=== PATIENT | female | born 1990 ===

== ENCOUNTER 2024-11-24 19:22 | Emergency (ER) | payer OTHER ==
--- NOTE | 2024-11-24 19:57 | RAD REPORT ---
EXAM: Chest Single View HISTORY: 34 years Female CHEST PAIN COMPARISON: 06/24/2016 FINDINGS: LUNGS/PLEURA: The lungs are clear. No pleural effusions or pneumothorax. No pulmonary edema. CARDIAC/MEDIASTINUM: The cardiac silhouette is within normal limits. UPPER ABDOMEN: No significant abnormality. BONES: No acute abnormality. LINES/TUBES/OTHER: N/A IMPRESSION: No evidence of acute cardiopulmonary disease. No significant change from prior.
--- NOTE | 2024-11-24 20:07 | RAD REPORT ---
EXAMINATION: Ct Stroke Brain Wo Cont CLINICAL INDICATION: Female, 34 years old.STROKE ALERT TECHNIQUE: Axial CT images from the skull base to the vertex without intravenous contrast. Coronal an d sagittal reformatted images were created from the data set. One or more of the following dose reduction techniques were used: Automated exposure control, adjustment of the mA and/or kV according to patient size, and/or iterative reconstruction. Unless otherwise specified, incidental findings do not require dedicated imaging follow-up. [id number]. COMPARISON: 11/16/14 FINDINGS: INTRACRANIAL: No acute intracranial hemorrhage. No hydrocephalus. No mass effect or midline shift. No significant white matter disease. VASCULATURE: No visualized abnormalities in the arteries or dural venous sinuses. SCALP/SKULL: No calvarial fracture identified. No acute soft tissue abnormality. SINUSES: The visualized paranasal sinuses are mostly clear. No significant mastoid fluid. IMPRESSION: No acute intracranial abnormality. The findings were communicated to Dr. Mason on 11/24/2024 8:04 PM.
--- NOTE | 2024-11-24 20:08 | RAD REPORT ---
EXAMINATION: Neck Angio CLINICAL INDICATION: Female, 34 years old. NUMBNESS TECHNIQUE: Axial CT images were obtained from the aortic arch to the skull base after intravenous con trast utilizing angiographic protocol with 3D post-processing (maximum intensity projection images, volume rendered images and/or shaded surface rendered images). One or more of the following dose redu ction techniques were used: Automated exposure control, adjustment of the mA and/or kV according to patient size, and/or iterative reconstruction. Unless otherwise specified, incidental findings do not require dedicated imaging follow-up. [id number]. NASCET criteria used. Mild 0-49% stenosis Moderate 50-69% stenosis Severe 70-99% stenosis COMPARISON: No prior exam. FINDINGS: AORTA: Normal RIGHT: - CCA: Patent - ICA: Patent - ECA: Patent LEFT: - CCA: Patent - ICA: Patent - ECA: Patent VERTEBRAL: Patent SOFT TISSUE: No significant neck soft tissue abnormalities. The visualized lung apices are clear. 3D images confirm these findings. IMPRESSION: No arterial dissection or stenosis identified within the neck.
--- NOTE | 2024-11-24 20:10 | RAD REPORT ---
EXAMINATION: Head angio CLINICAL INDICATION: Female, 34 years old. STROKE ALERT TECHNIQUE: Axial CT images were obtained through the head after intravenous contrast utilizing angiog raphic protocol with 3D post-processing (maximum intensity projection images, volume rendered images and/or shaded surface rendered images). One or more of the following dose reduction technique s were used: Automated exposure control, adjustment of the mA and/or kV according to patient size, and/or iterative reconstruction. Unless otherwise specified, incidental findings do not require dedic ated imaging follow-up. COMPARISON: No prior exam. FINDINGS: RIGHT: ICA: Patent PAOLO: Patent MCA: Patent PUBLICATION EDITOR: Patent LEFT: ICA: Patent PAOLO: Patent MCA: Patent PUBLICATION EDITOR: Patent Vertebrobasilar: The vertebral arteries are patent. The basilar artery is normal in appearance. 3D images confirm these findings. IMPRESSION: No occlusion, aneurysm, or hemodynamically significant stenosis identified.
[2024-11-24] MEDS ORDERED: NA CHLORIDE 0.9% 1,000 ML ONE (20:27)
[2024-11-24 20:38] LABS: Absolute Basophils 0.1 K/uL (0-0.5); Absolute Monocytes 0.3 K/uL (0.1-1.3); Absolute Neutrophil 6.6 K/uL (1.8-8.0); Basophils % 0.7 % (0-1.3); Eosinophils % 0.3 % (0-4.4); Hematocrit 40.6 % (36.0-45.0); Hemoglobin 13.9 g/dL (12.0-15.0); Lymphocytes % 36.5 % (15.3-44.8); MCH 31.6 pg (27.0-35.0); MCHC 34.3 g/dL (32.0-36.0); MCV 92.1 fL (80-100); MPV 8.9 fL (7.6-11.3); Monocytes % 2.7 % (3.3-12.3); Neutrophils % 59.8 % (41.7-73.7); Nucleated Red Blood Cells % 0.1 % (0-0); Platelets 431 thou/uL (152-406); Red Cell Distribution Width 17.2 % (12.1-15.2)
[2024-11-24 20:41] LABS: PTT, Activated Partial Thromb 30.5 SECONDS (27.2-37.4); Protime INR 0.96
[2024-11-24] MEDS ORDERED: THIAMINE 200 MG/2 ML INJ ONE (20:51)
[2024-11-24] MEDS ORDERED: FOLIC ACID 5 MG/ML VIAL ONE (20:52)
[2024-11-24] MEDS ORDERED: MULTIVITAMINS 10 ML VIAL (INJ) IV ONE (20:52)
[2024-11-24 21:01] LABS: Anion Gap 10.2 mEq/L (5.0-15.0); Potassium 3.2 mEq/L (3.5-5.1); Troponin High Sensitivity 4.5 pg/mL (<58.9)
[2024-11-24 22:22] LABS: Specific Gravity > 1.030 (1.005-1.030)
[2024-11-24 22:27] LABS: Barbiturates NEGATIVE (NEGATIVE); Benzodiazepines NEGATIVE (NEGATIVE); Cocaine NEGATIVE (NEGATIVE); METHAMPHETAM NEGATIVE (NEGATIVE); Methadone NEGATIVE (NEGATIVE); Opiates NEGATIVE (NEGATIVE); Phencyclidine NEGATIVE (NEGATIVE); THC Cannibis NEGATIVE (NEGATIVE)
--- NOTE | 2024-11-24 22:38 | EDPHYS ---
Physician Documentation [facility] Name: Myra Orlando Age: 34 yrs Sex: Female : 1990 Arrival Date: 11/24/2024 Time: 19:22 Bed 4 Private MD: ED Physician Bala Veras HPI: 11/24 19:49 This 34 yrs old Female presents to ER via EMS with complaints of Chest Pain, gb1 Shortness Of Breath. 19:49 34-year-old female here at 6:00PM stated she had chest pain shortness of breath gb1 and then she could not move her left lower extremity and her left upper extremity felt weak like pins needles. She has a history of a TIA in the past but this is a new deficit. Patient states that she did drink heavily alcohol yesterday and she is a heavy tobacco smoker. She also takes lisinopril for hypertension. She has no drug allergies and is otherwise without any other problems to report. She has a headache 10 out of 10.. 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 - Infectious Disease History:: Denies. - Social history:: Smoking status: Patient reports the use of cigarette tobacco products, smokes one pack cigarettes per day. Patient uses alcohol, occasionally. ROS: 11/25 02:14 Constitutional: Negative for fever, chills, and weight loss, positive for chest pain, sp4 positive shortness of breath, positive for left arm numbness tingling, positive left leg numbness tingling All other systems are negative, Exam: 11/24 19:49 Constitutional: This is a well developed, well nourished patient who is awake, alert, gb1 and in no acute distress. Head/Face: Normocephalic, atraumatic. Eyes: Pupils equal round and reactive to light, extra-ocular motions intact. Lids and lashes normal. Conjunctiva and sclera are non-icteric and not injected. Cornea within normal limits. Periorbital areas with no swelling, redness, or edema. ENT: Nares patent. No nasal discharge, no septal abnormalities noted. Tympanic membranes are normal and external auditory canals are clear. Oropharynx with no redness, swelling, or masses, exudates, or evidence of obstruction, uvula midline. Mucous membranes moist. Neck: Trachea midline, no thyromegaly or masses palpated, and no cervical lymphadenopathy. Supple, full range of motion without nuchal rigidity, or vertebral point tenderness. No Meningismus. Chest/axilla: Normal chest wall appearance and motion. Nontender with no deformity. No lesions are appreciated. Cardiovascular: Regular rate and rhythm with a normal S1 and S2. No gallops, murmurs, or rubs. Normal PMI, no JVD. No pulse deficits. Respiratory: Lungs have equal breath sounds bilaterally, clear to auscultation and percussion. No rales, rhonchi or wheezes noted. No increased work of breathing, no retractions or nasal flaring. Abdomen/GI: Soft, non-tender, with normal bowel sounds. No distension or tympany. No guarding or rebound. No evidence of tenderness throughout. Back: No spinal tenderness. No costovertebral tenderness. Full range of motion. Skin: Warm, dry with normal turgor. Normal color with no rashes, no lesions, and no evidence of cellulitis. MS/ Extremity: Pulses equal, no cyanosis. Left lower extremity she is unable to lift against gravity and left upper extremity has paresthesias and 4-5 strength. Right sided extremities are within normal limits per sensory and motor guidelines. Neuro: Awake and alert, GCS 15, oriented to person, place, time, and situation. Cranial nerves II-XII grossly intact. Motor strength 5/5 in all extremities on the right and on the left upper extremity is 4 out of 5 in the left lower extremity is 1 out of 5. Sensory grossly intact. Unable to test gait patient is unable to use the left lower extremity.. 22:00 ECG was reviewed by the Attending Physician. EKG at 2016 normal sinus rhythm, rate 100. sp4 Vital Signs: 19:20 BP 126 / 92; Pulse 119; Resp 18; Temp 98.4; Pulse Ox 99% on R/A; Weight 60 kg; Height 5 rg5 ft. 6 in. ; Pain 7/10; 20:13 BP 141 / 107; Pulse 109; Resp 18; Pulse Ox 100% ; Pain 7/10; rg5 21:00 BP 130 / 96; Pulse 97; Resp 18; Pulse Ox 99% ; rg5 22:00 BP 133 / 94; Pulse 93; Resp 18; Temp 98; Pulse Ox 100% ; rg5 19:20 Body Mass Index 21.35 (60.00 kg, 167.64 cm) rg5 19:20 Pain Scale: Adult rg5 20:13 Pain Scale: Adult rg5 NIH Stroke Scale Scores: 12:50 NIHSS Score: 4 rg5 22:00 NIHSS Score: 0 rg5 22:00 NIHSS Score: 0 sp4 [place] Coma Score: 22:00 Eye Response: spontaneous(4). Motor Response: obeys commands(6). Verbal Response: sp4 oriented(5). Total: 15. Procedures: 19:54 Performed NIHSS: Limb ataxia 2, Sensory 1, Motor L Arm: 1, Motor L Leg 3: Total 7. gb1 MDM: 19:49 Medical Screening Exam initiated gb1 19:49 Data reviewed: vital signs, nurses notes. 1 11/25 02:11 Differential diagnosis: acute myocardial infarction, acute pericarditis, anxiety, sp4 coronary artery disease chest wall pain, congestive heart failure Acute CVA. ED course: Patient has sobered up and ambulated without difficulty. No sign of acute CVA. CT angio does not suggest CVA. Patient stable for discharge home. Advised to discontinue alcohol abuse.. 02:13 ED course: EXAMINATION: Ct Stroke Brain Wo Cont CLINICAL INDICATION: Female, 34 years sp4 old.STROKE ALERT TECHNIQUE: Axial CT images from the skull base to the vertex without intravenous contrast. Coronal and sagittal reformatted images were created from the data set. One or more of the following dose reduction techniques were used: Automated exposure control, adjustment of the mA and/or kV according to patient size, and/or iterative reconstruction. Unless otherwise specified, incidental findings do not require dedicated imaging follow-up. [id number]. COMPARISON: 11/16/14 FINDINGS: INTRACRANIAL: No acute intracranial hemorrhage. No hydrocephalus. No mass effect or midline shift. No significant white matter disease. VASCULATURE: No visualized abnormalities in the arteries or dural venous sinuses. SCALP/SKULL: No calvarial fracture identified. No acute soft tissue abnormality. SINUSES: The visualized paranasal sinuses are mostly clear. No significant mastoid fluid. IMPRESSION: No acute intracranial abnormality. The findings were communicated to Dr. Marlon on 11/24/2024 8:04 PM. Reported By: Nahid Loera . ED course: EXAM: Chest Single View HISTORY: 34 years Female CHEST PAIN COMPARISON: 06/24/2016 FINDINGS: LUNGS/PLEURA: The lungs are clear. No pleural effusions or pneumothorax. No pulmonary edema. CARDIAC/MEDIASTINUM: The cardiac silhouette is within normal limits. UPPER ABDOMEN: No significant abnormality. BONES: No acute abnormality. LINES/TUBES/OTHER: N/A IMPRESSION: No evidence of acute cardiopulmonary disease. No significant change from prior. . ED course: EXAMINATION: Head angio CLINICAL INDICATION: Female, 34 years old. STROKE ALERT TECHNIQUE: Axial CT images were obtained through the head after intravenous contrast utilizing angiographic protocol with 3D post-processing (maximum intensity projection images, volume rendered images and/or shaded surface rendered images). One or more of the following dose reduction techniques were used: Automated exposure control, adjustment of the mA and/or kV according to patient size, and/or iterative reconstruction. Unless otherwise specified, incidental findings do not require dedicated imaging follow-up. COMPARISON: No prior exam. FINDINGS: RIGHT: ICA: Patent PAOLO: Patent MCA: Patent PLATFORM MATERIAL HANDLER MANAGER: Patent LEFT: ICA: Patent PAOLO: Patent MCA: Patent PLATFORM MATERIAL HANDLER MANAGER: Patent Vertebrobasilar: The vertebral arteries are patent. The basilar artery is normal in appearance. 3D images confirm these findings. IMPRESSION: No occlusion, aneurysm, or hemodynamically significant stenosis identified. . ED course: CT Neck - 3D images confirm these findings. IMPRESSION: No arterial dissection or stenosis identified within the neck. . 02:15 HEART Score: History: Slightly Suspicious (0), ECG: Normal (0), Age: < or = 45 years sp4 (0), Risk Factors: No Risk Factors Known (0), Troponin: < or = 1 x Normal Limit (0), Total Score = 0. 11/24 19:33 Order name: Basic Metabolic Panel; Complete Time: 22:28 sb4 11/24 19:33 Order name: CBC with Diff; Complete Time: 20:46 sb4 11/24 19:33 Order name: Troponin HS; Complete Time: 22:28 sb4 11/24 19:33 Order name: Test, Urine; Complete Time: 22:28 sb4 11/24 19:48 Order name: Magnesium; Complete Time: 22:28 gb1 11/24 19:48 Order name: Protime (+inr); Complete Time: 20:46 gb1 11/24 19:48 Order name: Ptt, Activated; Complete Time: 20:46 gb1 11/24 19:49 Order name: Ethanol; Complete Time: 22:28 gb1 11/24 20:35 Order name: Urine Drug Screen; Complete Time: 22:28 sp4 11/24 19:33 Order name: XRAY Chest (1 view); Complete Time: 20:01 sb4 11/24 19:48 Order name: CT Neck Angio; Complete Time: 20:19 gb1 11/24 19:55 Order name: Ct Stroke Brain Wo Cont; Complete Time: 20:19 EDMS 11/24 19:57 Order name: Head angio; Complete Time: 20:19 EDMS 11/24 19:33 Order name: Cardiac monitoring; Complete Time: 20:23 sb4 11/24 19:33 Order name: EKG - Nurse/Tech; Complete Time: 20:23 sb4 11/24 19:33 Order name: IV Saline Lock; Complete Time: 20:23 sb4 11/24 19:33 Order name: Labs collected and sent; Complete Time: 20:23 sb4 11/24 19:33 Order name: O2 Per Protocol; Complete Time: 20:23 sb4 11/24 19:33 Order name: O2 Sat Monitoring; Complete Time: 20:23 sb4 11/24 19:48 Order name: NPO; Complete Time: 20:23 gb1 EC/19 20:16 Rate is 100 beats/min. Rhythm is regular, Normal Sinus Rhythm. QRS [place] is Normal. [place] sp4 interval is normal. QRS interval is normal. QT interval is normal. No Q waves. T waves are Normal. No ST changes noted. Clinical impression: No evidence of ischemia. Interpreted by me. Reviewed by me. Administered Medications: 20:29 Drug: NS 0.9% IV 1000 ml IV at 1 bolus Per protocol; to be given as a bolus over 60 rg5 minutes Route: IV; Rate: 1 bolus; Site: right forearm; 22:54 Follow up: IV Status: Completed infusion; IV Intake: 1000ml rg5 21:05 Drug: Banana Bag - (Multivitamin IV 1 amp, NS 0.9% IV 1000 ml, Thiamine IV 100 mg, rg5 foLIC Acid IVPB 1 mg) IV at calculated rate once Route: IV; Rate: calculated rate; Site: right forearm; 21:56 Follow up: IV Status: Completed infusion; IV Intake: 1000ml rg5 Disposition: 19:49 Critical Care:. gb1 Disposition Summary: 11/24/24 22:38 Discharge Ordered Notes: Location: Home sp4 Problem: new sp4 Symptoms: have improved sp4 Condition: Stable sp4 Diagnosis - Alcohol abuse with intoxication sp4 - Acute alcohol intoxication, acute numbness left lower extremity, acute paresthesias sp4 left upper extremity Followup: sp4 - With: Private Physician - When: 7 - 10 days - Reason: Recheck today's complaints Discharge Instructions: - Discharge Summary Sheet sp4 - Alcohol Intoxication sp4 Forms: - Patient Portal Instructions sp4 Critical care time excluding procedures: 19:49 Critical care time: Bedside Care: 40 minutes, Consultation: 10 minutes, Family gb1 Intervention: 35 minutes. Total time: 85 minutes NIH Stroke Scale - NIH Stroke Score Date: 11/24/2024 Time: 12:50 Total Score = 4 10. Dysarthria (speech clarity - read or repeat words) - 0(Normal) 11. Extinction and Inattention (visual/tactile/auditory/spatial/personal) - 0(No abnormality) 1a. Level of Consciousness (LOC) - 0(Alert) 1b. Level of Consciousness (LOC) (Month \T\ Age) - 0(Both) 1c. LOC Commands (Open \T\ Closes Eyes/Cloth Measurer Machine) - 0(Both) 2. Best Gaze (Lateral Gaze Paresis) - 0(Normal) 3. Visual Field Loss - 0(No visual loss) 4. Facial Palsy - 0(Normal) 5a. Left Arm: Motor (10-second hold) - 1(Drift) 5b. Right Arm: Motor (10-second hold) - 0(No drift) 6a. Left Leg: Motor (5-second hold - always test supine) - 2(Drift, some effort against gravity) 6b. Right Leg: Motor (5-second hold - always test supine) - (No drift) 7. Limb Ataxia (finger/nose \T\ heel/alva - test with eyes open) - 0(Absent) 8. Sensory Loss (pinprick arms/legs/face) - 1(Mild to moderate loss) 9. Best Language: Aphasia (description/naming/reading) - 0(No aphasia) Initials: [facility] NIH Stroke Scale - NIH Stroke Score Date: 11/24/2024 Time: 22:00 Total Score = 0 10. Dysarthria (speech clarity - read or repeat words) - 0(Normal) 11. Extinction and Inattention (visual/tactile/auditory/spatial/personal) - 0(No abnormality) 1a. Level of Consciousness (LOC) - 0(Alert) 1b. Level of Consciousness (LOC) (Month \T\ Age) - 0(Both) 1c. LOC Commands (Open \T\ Closes Eyes/Cloth Measurer Machine) - 0(Both) 2. Best Gaze (Lateral Gaze Paresis) - 0(Normal) 3. Visual Field Loss - 0(No visual loss) 4. Facial Palsy - 0(Normal) 5a. Left Arm: Motor (10-second hold) - 0(No drift) 5b. Right Arm: Motor (10-second hold) - 0(No drift) 6a. Left Leg: Motor (5-second hold - always test supine) - 0(No drift) 6b. Right Leg: Motor (5-second hold - always test supine) - 0(No drift) 7. Limb Ataxia (finger/nose \T\ heel/alva - test with eyes open) - 0(Absent) 8. Sensory Loss (pinprick arms/legs/face) - 0(Normal) 9. Best Language: Aphasia (description/naming/reading) - 0(No aphasia) Initials: [facility] NIH Stroke Scale - NIH Stroke Score Date: 11/24/2024 Time: 22:00 Total Score = 0 10. Dysarthria (speech clarity - read or repeat words) - 0(Normal) 11. Extinction and Inattention (visual/tactile/auditory/spatial/personal) - 0(No abnormality) 1a. Level of Consciousness (LOC) - 0(Alert) 1b. Level of Consciousness (LOC) (Month \T\ Age) - 0(Both) 1c. LOC Commands (Open \T\ Closes Eyes/Cloth Measurer Machine) - 0(Both) 2. Best Gaze (Lateral Gaze Paresis) - 0(Normal) 3. Visual Field Loss - 0(No visual loss) 4. Facial Palsy - 0(Normal) 5a. Left Arm: Motor (10-second hold) - 0(No drift) 5b. Right Arm: Motor (10-second hold) - 0(No drift) 6a. Left Leg: Motor (5-second hold - always test supine) - 0(No drift) 6b. Right Leg: Motor (5-second hold - always test supine) - 0(No drift) 7. Limb Ataxia (finger/nose \T\ heel/alva - test with eyes open) - 0(Absent) 8. Sensory Loss (pinprick arms/legs/face) - 0(Normal) 9. Best Language: Aphasia (description/naming/reading) - 0(No aphasia) Initials: sp4 Signatures: Dispatcher [employer] EDMS Feli Agee, PALelaC PAJune sb4 Bala Veras MD MD sp4 Lisha Mason MD MD gb1 Felipe Campos, RN RN rg5 Corrections: (The following items were deleted from the chart) 19:33 19:33 BASIC METABOLIC PANEL+C.LAB.BRZ ordered. EDMS EDMS 19:33 19:33 CBC+H.LAB.BRZ ordered. EDMS EDMS 19:33 19:33 Troponin High Sensitivity+C.LAB.BRZ ordered. EDMS EDMS 19:33 19:33 Test, Urine+UC.LAB.BRZ ordered. EDAZ EDMS 19:33 19:33 Chest Single View+RAD.RAD.BRZ ordered. EDAZ EDMS 19:48 19:48 MAGNESIUM+C.LAB.BRZ ordered. EDMS EDMS 19:48 19:48 PROTIME (+INR)+COAG.LAB.BRZ ordered. EDMS EDMS 19:48 19:48 PTT, ACTIVATED+COAG.LAB.BRZ ordered. EDMS EDMS 19:48 19:48 Head Brain Wo Cont+CT.RAD.BRZ ordered. EDMS EDMS 19:48 19:48 Chest Single View+RAD.RAD.BRZ ordered. EDMS EDMS 19:48 19:48 Head Brain W Cont+CT.RAD.BRZ ordered. EDMS EDMS 19:48 19:48 Neck Angio+CT.RAD.BRZ ordered. EDMS EDMS 19:58 19:49 34-year-old female here at 6:00 stated she had chest pain gb1 shortness of breath and then she could not move her left lower extremity and her left upper extremity felt weak like pins needles. She has a history of a TIA in the past but this is a new deficit. Patient states that she did drink heavily alcohol yesterday and she is a heavy tobacco smoker. She also takes lisinopril for hypertension. She has no drug allergies and is otherwise without any other problems to report. She has a headache 10 out of 10.. gb1 22:11 19:49 URINE DRUG SCREEN+UC.LAB.BRZ ordered. EDMS EDMS 22:12 19:49 Test, Urine+UC.LAB.BRZ ordered. EDMS EDMS
--- NOTE | 2024-11-24 22:38 | ER ---
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 19:23 Coronavirus screen: Client denies travel out of the [place] in the last 14 days. Ebola rg5 Screen: Patient negative for fever greater than or equal to 101.5 degrees Fahrenheit, and additional compatible Ebola Virus Disease symptoms Patient denies exposure to infectious person. Patient denies travel to an Ebola-affected area in the 21 days before illness onset. Initial Sepsis Screen: Does the patient meet any 2 criteria? No. Patient's initial sepsis screen is negative. Does the patient have a suspected source of infection? No. Patient's initial sepsis screen is negative. Risk Assessment: Do you want to hurt yourself or someone else? Patient reports no desire to harm self or others. Onset of symptoms was November 24, 2024. Care prior to arrival: Medication(s) given: ASA, 81 mg, x 4. 19:23 Method Of Arrival: EMS: [facility] rg5 19:23 Acuity: SHRADDHA 3 rg5 Triage Assessment: 19:25 General: Appears in no apparent distress. Behavior is calm, cooperative, appropriate rg5 for age, Smells of alcohol. 19:25 Pain: Complains of pain in chest. EENT: No signs and/or symptoms were reported rg5 regarding the EENT system. Neuro: Level of Consciousness is awake, alert, obeys commands, Oriented to person, place, time, situation, Reports numbness weakness. Cardiovascular: Reports chest pain, shortness of breath, Capillary refill < 3 seconds Patient's skin is warm and dry. Rhythm is sinus tachycardia. Respiratory: Airway is patent Trachea midline Respiratory effort is even, unlabored, Respiratory pattern is regular, symmetrical. GI: No signs and/or symptoms were reported involving the gastrointestinal system. Abdomen is round non-distended. : No signs and/or symptoms were reported regarding the genitourinary system. Derm: Skin is intact, Skin is dry, Skin is normal. Musculoskeletal: Circulation, motion, and sensation intact. Range of motion: intact in all extremities. 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 - Infectious Disease History:: Denies. - Social history:: Smoking status: Patient reports the use of cigarette tobacco products, smokes one pack cigarettes per day. Patient uses alcohol, occasionally. Screenin:25 [facility] ED Fall Risk Assessment (Adult) History of falling in the last 3 months, rg5 including since admission No falls in past 3 months (0 pts) Intoxicated or Sedated Yes (3 pts) Impaired Gait Yes (1 pt) Mobility Assist Device Used No (0 pt) Altered Elimination No (0 pt) Score/Fall Risk Level 3 or more points = High Risk Hourly rounding (assess needs \T\ fall precautionary measures) done. Abuse screen: Denies threats or abuse. Nutritional screening: No deficits noted. 19:25 Tuberculosis screening: No symptoms or risk factors identified. rg5 22:55 [facility] ED Fall Risk Assessment (Adult) Confusion or Disorientation. rg5 Assessment: 19:25 Pain: Pain radiates to left arm Quality of pain is described as dull, numb, Pain began rg5 1 hour ago. 20:00 Reassessment: Patient and/or family updated on plan of care and expected duration. Pain rg5 level reassessed. Patient is alert, oriented x 3, equal unlabored respirations, skin warm/dry/pink. Patient states symptoms have improved. 21:00 Reassessment: Patient and/or family updated on plan of care and expected duration. Pain rg5 level reassessed. Patient is alert, oriented x 3, equal unlabored respirations, skin warm/dry/pink. Patient states symptoms have improved. 22:00 Reassessment: Patient and/or family updated on plan of care and expected duration. Pain rg5 level reassessed. Patient is alert, oriented x 3, equal unlabored respirations, skin warm/dry/pink. Patient states feeling better. Patient states symptoms have improved. Vital Signs: 19:20 BP 126 / 92; Pulse 119; Resp 18; Temp 98.4; Pulse Ox 99% on R/A; Weight 60 kg; Height 5 rg5 ft. 6 in. ; Pain 7/10; 20:13 BP 141 / 107; Pulse 109; Resp 18; Pulse Ox 100% ; Pain 7/10; rg5 21:00 BP 130 / 96; Pulse 97; Resp 18; Pulse Ox 99% ; rg5 22:00 BP 133 / 94; Pulse 93; Resp 18; Temp 98; Pulse Ox 100% ; rg5 19:20 Body Mass Index 21.35 (60.00 kg, 167.64 cm) rg5 19:20 Pain Scale: Adult rg5 20:13 Pain Scale: Adult rg5 Matt Coma Score: 22:00 Eye Response: spontaneous(4). Motor Response: obeys commands(6). Verbal Response: sp4 oriented(5). Total: 15. NIH Stroke Scale Scores: 12:50 NIHSS Score: 4 rg5 22:00 NIHSS Score: 0 rg5 22:00 NIHSS Score: 0 sp4 ED Course: 19:23 Patient arrived in ED. rg5 19:24 Felpie Campos, RN is Primary Nurse. rg5 19:25 No provider procedures requiring assistance completed. Patient maintains SpO2 rg5 saturation greater than 95% on room air. 19:25 Patient has correct armband on for positive identification. Bed in low position. Call rg5 light in reach. Side rails up X 1. Client placed on continuous cardiac and pulse oximetry monitoring. NIBP monitoring applied. environmental monitoring technician on. Pulse ox on. NIBP on. 19:25 Arm band placed on right wrist. rg5 19:25 EKG completed in triage. Results shown to MD. rg5 19:27 Triage completed. rg5 19:46 Lisha Mason MD is Attending Physician. gb1 19:46 XRAY Chest (1 view) In Process Unspecified. EDMS 19:58 Ct Stroke Brain Wo Cont In Process Unspecified. EDMS 20:00 Attending Physician role handed off by Lisha Mason MD sp4 20:00 Bala Veras MD is Attending Physician. sp4 20:04 CT Neck Angio In Process Unspecified. EDMS 20:05 Head angio In Process Unspecified. EDMS 22:00 Provided Education on: post er care. rg5 22:55 IV discontinued, bleeding controlled, No redness/swelling at site. Pressure dressing rg5 applied. Administered Medications: 20:29 Drug: NS 0.9% IV 1000 ml IV at 1 bolus Per protocol; to be given as a bolus over 60 rg5 minutes Route: IV; Rate: 1 bolus; Site: right forearm; 22:54 Follow up: IV Status: Completed infusion; IV Intake: 1000ml rg5 21:05 Drug: Banana Bag - (Multivitamin IV 1 amp, NS 0.9% IV 1000 ml, Thiamine IV 100 mg, rg5 foLIC Acid IVPB 1 mg) IV at calculated rate once Route: IV; Rate: calculated rate; Site: right forearm; 21:56 Follow up: IV Status: Completed infusion; IV Intake: 1000ml rg5 Medication: 22:15 VIS not applicable for this client. rg5 Intake: 21:56 IV: 1000ml; Total: 1000ml. rg5 22:54 IV: 1000ml; Total: 2000ml. rg5 Outcome: 22:38 Discharge ordered by . sp4 22:55 Discharged to home ambulatory, rg5 22:55 Condition: stable 22:55 Discharge instructions given to patient, 22:57 Patient left the ED. rg5 NIH Stroke Scale - NIH Stroke Score Date: 11/24/2024 Time: 12:50 Total Score = 4 10. Dysarthria (speech clarity - read or repeat words) - 0(Normal) 11. Extinction and Inattention (visual/tactile/auditory/spatial/personal) - 0(No abnormality) 1a. Level of Consciousness (LOC) - 0(Alert) 1b. Level of Consciousness (LOC) (Month \T\ Age) - 0(Both) 1c. LOC Commands (Open \T\ Closes Eyes/Kitchen Food Assembler) - 0(Both) 2. Best Gaze (Lateral Gaze Paresis) - 0(Normal) 3. Visual Field Loss - 0(No visual loss) 4. Facial Palsy - 0(Normal) 5a. Left Arm: Motor (10-second hold) - 1(Drift) 5b. Right Arm: Motor (10-second hold) - 0(No drift) 6a. Left Leg: Motor (5-second hold - always test supine) - 2(Drift, some effort against gravity) 6b. Right Leg: Motor (5-second hold - always test supine) - (No drift) 7. Limb Ataxia (finger/nose \T\ heel/alva - test with eyes open) - 0(Absent) 8. Sensory Loss (pinprick arms/legs/face) - 1(Mild to moderate loss) 9. Best Language: Aphasia (description/naming/reading) - 0(No aphasia) Initials: [facility] NIH Stroke Scale - NIH Stroke Score Date: 11/24/2024 Time: 22:00 Total Score = 0 10. Dysarthria (speech clarity - read or repeat words) - 0(Normal) 11. Extinction and Inattention (visual/tactile/auditory/spatial/personal) - 0(No abnormality) 1a. Level of Consciousness (LOC) - 0(Alert) 1b. Level of Consciousness (LOC) (Month \T\ Age) - 0(Both) 1c. LOC Commands (Open \T\ Closes Eyes/Kitchen Food Assembler) - 0(Both) 2. Best Gaze (Lateral Gaze Paresis) - 0(Normal) 3. Visual Field Loss - 0(No visual loss) 4. Facial Palsy - 0(Normal) 5a. Left Arm: Motor (10-second hold) - 0(No drift) 5b. Right Arm: Motor (10-second hold) - 0(No drift) 6a. Left Leg: Motor (5-second hold - always test supine) - 0(No drift) 6b. Right Leg: Motor (5-second hold - always test supine) - 0(No drift) 7. Limb Ataxia (finger/nose \T\ heel/alva - test with eyes open) - 0(Absent) 8. Sensory Loss (pinprick arms/legs/face) - 0(Normal) 9. Best Language: Aphasia (description/naming/reading) - 0(No aphasia) Initials: [facility] NIH Stroke Scale - NIH Stroke Score Date: 11/24/2024 Time: 22:00 Total Score = 0 10. Dysarthria (speech clarity - read or repeat words) - 0(Normal) 11. Extinction and Inattention (visual/tactile/auditory/spatial/personal) - 0(No abnormality) 1a. Level of Consciousness (LOC) - 0(Alert) 1b. Level of Consciousness (LOC) (Month \T\ Age) - 0(Both) 1c. LOC Commands (Open \T\ Closes Eyes/Kitchen Food Assembler) - 0(Both) 2. Best Gaze (Lateral Gaze Paresis) - 0(Normal) 3. Visual Field Loss - 0(No visual loss) 4. Facial Palsy - 0(Normal) 5a. Left Arm: Motor (10-second hold) - 0(No drift) 5b. Right Arm: Motor (10-second hold) - 0(No drift) 6a. Left Leg: Motor (5-second hold - always test supine) - 0(No drift) 6b. Right Leg: Motor (5-second hold - always test supine) - 0(No drift) 7. Limb Ataxia (finger/nose \T\ heel/alva - test with eyes open) - 0(Absent) 8. Sensory Loss (pinprick arms/legs/face) - 0(Normal) 9. Best Language: Aphasia (description/naming/reading) - 0(No aphasia) Initials: sp4 Signatures: Dispatcher [employer] EDBala Morris MD MD sp4 Lisha Mason MD MD gb1 Felipe Campos RN RN rg5 Corrections: (The following items were deleted from the chart) 21:16 19:23 Chief complaint: EMS states: PT had a chest pain \T\ shortness of breath ! 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
[2024-11-24 23:25] VITALS: BP 133/94; TEMP 98; O2SAT 100
== END 2024-11-24 22:57 | disposition home or self-care (01) ==
LOC: ER 19:22
DX: F10.129 Alcohol abuse with intoxication, unspecified (principal); R20.0 Anesthesia of skin; R20.2 Paresthesia of skin; I10 Essential (primary) hypertension; F17.210 Nicotine dependence, cigarettes, uncomplicated
CPT/HCPCS: 96365; 96361; 93005; 85025; 80048; 36415; 83735; 81025; 85610; 85730; 84484; 80307; 70496; 70498; 70450; 71045; 99285; 82077; Q9967; J3411; J7030